=== PATIENT | male | born 1985 | race Caucasian/White ===

== ENCOUNTER 2017-11-03 11:29 | Emergency (ER) | payer OTHER ==
[~2017-11-03] VITALS: Ht 185.4 cm; Wt 94.1 kg
[~2017-11-03 11:29] MED LIST: HYDROCODON-ACE1 EAC7 PO; ZOFRAN ODT4 MG PO; ZOFRAN4 MG PO
[2017-11-03 12:31] LABS: HEMATOCRIT 48.3 % (38.0-50.0); HEMOGLOBIN 16.6 G/DL (12.5-16.6); MCH 31.6 PG (29.0-34.0); MCHC 34.4 G/DL (30.0-36.0); MCV 91.8 FL (86-99); PLATELET COUNT 347 K/uL (156-360); RBC DIS.WIDTH-CV 12.5 % (11.8-14.6); RBC DIS.WIDTH-SD 42.4 % (39-53); RED BLOOD COUNT 5.26 M/uL (4.00-5.50); WHITE BLOOD COUNT 11.6 K/uL (4.1-10.2)
[2017-11-03 12:42] LABS: CHLORIDE 107 mEq/L (99-109); SODIUM 141 mEq/L (136-147)
[2017-11-03 12:44] LABS: GLUCOSE 93 mg/dL (70-99)
[2017-11-03 12:48] LABS: CREATININE 1.2 mg/dL (0.6-1.3); GFR ESTIMATE (CALCULATED) > 59 mL/min/ (58.99-99999); UREA NITROGEN (BUN) 15 mg/dL (9-23)
[2017-11-03 12:52] LABS: TROP-I INTERPRETATION NEGATIVE; TROPONIN-I < 0.01 ng/mL (0.0-0.30)
[2017-11-03 15:06] LABS: ERTH.SED.RATE 20 MM/HR (0-15)
[2017-11-03 15:46] LABS: ALBUMIN 4.7 g/dL (3.2-4.8)
[2017-11-03 15:49] LABS: TOTAL PROTEIN 8.4 g/dL (6.4-8.3)
[2017-11-03 15:51] LABS: TOTAL BILIRUBIN 0.6 mg/dL (0.0-1.0)
[2017-11-03 15:52] LABS: ALKALINE PHOSPHATASE 58 IU/L (3-129)
[2017-11-03 15:54] LABS: AST (GOT) 56 IU/L (2-34)
[2017-11-03 15:55] LABS: ALT (GPT) 75 IU/L (3-49)
[2017-11-03 16:14] LABS: C-REACTIVE PROTEIN 6.4 MG/L (0-10)
[2017-11-03 16:46] VITALS: BP 127/77
== END 2017-11-03 16:49 | disposition home or self-care (01) ==
LOC: EME 11:29
DX: R07.89 Other chest pain (principal); F17.200 Nicotine dependence, unspecified, uncomplicated; B19.20 Unspecified viral hepatitis C without hepatic coma
CPT/HCPCS: 71046; 80048; 80053; 84484; 85027; 85651; 86140; 93005; 99281; 99283